=== PATIENT | male | born 1970 | race Caucasian/White ===

== ENCOUNTER 2020-02-23 08:27 | Day surgery (SDC) | payer SELFPAY ==
[2020-02-23] VITALS (11 sets, daily range): BP systolic 119–146; BP diastolic 85–102; PULSE 72–98; RESP 16; TEMP 36.1–37.1; O2SAT 92–98; BMI 26.9
[2020-02-23 08:51] LABS: Prothrombin Time Fingerstick 16.1 SEC (11.9-14.4)
[2020-02-23] MEDS: Lactated Ringers 1,000 ML 100 ML IV ×2 (09:23→14:12)
--- NOTE | 2020-02-23 10:00 | BON_PTH ---
PATIENT: SHERI BALDERRAMA LOC: [facility] [place] U#:[id number] AGE/SX: 50/M ROOM: RE02/23/[address]: Dr. Pilo Flores DPM : 1970 BED: DIS: 02/23/2020 SPEC #: [id number] RECD: 02/23/20 13:34 STATUS: YUSEF REPasquale #: [id number] LAZARO: 02/23/20 10:[address]: Pilo Flores DEPT: SURGICAL PATHOLOGY RECD BY: Sunni Lozada ENTERED: 02/24/20 08:15 SP TYPE: Bone OTHR DR: Louis Hooks, PUBLIC ADDRESS SYSTEM MECHANIC-C Tissues: A - Toe, NOS B - Toe, NOS C - Toe, NOS D - Toe, NOS Procedures: Decalcification bone/plaque Surgery Specimen Level IV HEADER OPERATION: Foot partial first ray amputation, foot second digit amputation PRE-OP DIAGNOSIS: Crushing injury of left foot; displaced fracture of proximal phalanx of left greater toe and lesser toes; 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 Proximal margin left second toe: Pieces of bone with reactive changes, negative for acute osteomyelitis. B. Left second toe, amputation: Focal ulceration and acute inflammation. Underlying bone with acute osteomyelitis. C. Left great toe, amputation: Gangrenous necrosis and associated acute inflammation. Underlying bone with acute osteomyelitis. D. Proximal margin left great toe: Pieces of skin and soft tissue with acute inflammation and granulation tissue reaction. Pieces of bone, consistent with acute and chronic osteomyelitis. SJ:tanvi 02/29/20 MICROSCOPIC DESCRIPTION Slides are reviewed. GROSS DESCRIPTION A - Received in fixative is one container labeled with the patient's name and designated proximal margin second toe, left. The specimen consists of multiple irregular fragments of patterson bone that in aggregate measure 2 x 0.8 x 0.2 cm. The specimen is totally submitted in one cassette after decalcification. B - Received in fixative is one container labeled with the patient's name and designated left second toe. The specimen consists of a portion of bone with adherent skin and soft tissue measuring 2 cm in length and 1.7 cm in diameter. The distal portion appears to contain an ulcerated area measuring 1.8 x 1.5 cm. A longitudinal segment of the entire tissue is submitted in one cassette after decalcification. C - Received in fixative is one container labeled with the patient's name and designated left great toe. The specimen consists of a mummified distal toe containing nail, soft tissue and bone measuring 3 cm in length and 2 cm in diameter. Also present in the specimen container are two irregular and indurated fragments of skin, bone and soft tissue measuring in aggregate 4 x 2.5 x 1 cm. Top Lift And Automatic Window Repairer sections of the largest fragment is submitted in one cassette after decalcification. Top Lift And Automatic Window Repairer sections of the two smaller fragments are submitted in cassette 2 after decalcification. D - Received in fixative is one container labeled with the patient's name and designated proximal margin left great toe. The specimen consists of multiple irregular fragments of light patterson bone and soft tissue that in aggregate measure 3 x 2.5 x 0.2 cm. The specimen is totally submitted in one cassette after decalcification. / AM:tanvi 02/24/20 TC:2 CPT: 09776 x4, 65894 x4
--- NOTE | 2020-02-23 11:06 | DCINST_ITS ---
Discharge Diet: Light diet - advance as tolerated Discharge Activity: May Not Drive, May Not Shower, Use Walker, Use Crutches Weight Bearing Status: No weight bearing Keep extremity elevated above heart level: Left Leg Additional Activity Instructions:: 1. Keep dressing to left foot clean, dry, intact. Do not get dressing wet. Do not remove dressing. If get dressing wet, call office for further instruction. I recommend sponge bathing at this time. 2. Ice around left ankle 30 minutes every hour as needed for pain. 3. Elevate left foot above level of heart as often as possible until further instructed. 4. No walking/standing/placing any weight on left foot. Use crutches/walker/knee scooter for assistance. 5. Begin taking Percocet today, February 23, 2020 as needed for the pain. You can supplement with extra strength Tylenol (acetaminophen). Percocet does contain tylenol (acetaminophen) in it. Do not take more than 3000mg of Tylenol in a 24 hour period. 6. Begin taking doxycycline and ciprofloxacin (antibiotics) tomorrow, February 24, 2020 as prescribed. 7. Begin taking aspirin 81mg twice a day beginning tomorrow, February 24, 2020. 8. Follow-up with Dr. Flores on 02/29/2020 as previously scheduled. Call your doctor if your incision/area has: Sudden Increased Bleeding, Increased Pain/ Swelling Call your doctor if you observe: Fever of 101 or Higher, Coldness, Increased Pain, Shortness of breath, Chest pain, Increased palpitations (irregular heartbeat), Uncontrolled pain Cleanse incision/area with: Keep Dressing Clean & Dry Allergies/Adverse Reactions: Allergies No Known Allergies Allergy (Verified 02/23/20 08:55) Medications to take at Discharge Cilostazol [Pletal] 50 mg PO BIDAC 02/20/20 Ciprofloxacin [Cipro] 500 mg PO BID 02/20/20 Doxycycline 100 mg PO BID 02/20/20 Orders to be completed after discharge: Prothrombin Time w/INR Time Frame: 02/23/20, Facility: [facility], Location: Laboratory Primary Care Physician: Louis Hooks HEAD TRIMMER, HEAD TRIMMER-C [Primary Care Provider] - Test Results: Test results from this visit will be discussed in further detail at your follow- up appointment, if applicable. Please Follow Up With: Pilo Flores DPM When: on 02/29/2020 in [facility] Office Proposed Discharge Date: 02/23/20
[2020-02-23] MEDS: Cefazolin 2 GM in 0.9% Normal Saline 100 ML IV (11:15)
[2020-02-23] MEDS: Bupivacaine Mpf 0.5% 30 ML VIAL (11:40)
--- NOTE | 2020-02-23 13:08 | PCM.OPRPT ---
Problem List (1) Gangrene of toe of left foot Status: Acute (2) Crush injury of foot Status: Chronic Qualifiers: Encounter type: subsequent encounter Laterality: left Qualified Code(s): S97.82XD - Crushing injury of left foot, subsequent encounter Report of Operation Date of Procedure: 02/23/20 Pre-Operative Diagnosis: 1. Gangrene with necrosis of the left foot, first and second toes. 2. Left foot crush injury Post-Operative Diagnosis: Same as preoperative Surgery/Procedure Performed:: 1. Partial amputation, first digit left foot. 2. Complex wound closure, first digit left foot. 3. Partial amputation, second digit left foot. Description of Surgical Findings:: Consistent with diagnosis. Remaining bone appeared hard and healthy with no signs of osteonecrosis and active medullary bleeding noted. Remaining soft tissues appeared intact with capillary fill time of less than 3 seconds and adequate bleeding noted in all soft tissues. No evidence of necrosis remained in the soft tissues. cable installation technician: None Type of Anesthesia:: General/Regional - With a local block given to the left lower extremity consisting of 20 mL of 0.5% bupivacaine plain distributed a left ankle block fashion preoperatively Anesthesiologist: Brayan Quijano Special Medications: 2 g of Ancef given preoperatively Specimen's removed: 1. First toe, left foot. 2. Second toe, left foot. 3. Proximal margin, first toe left foot. 4. Proximal margin, second toe left foot. 5. Wound culture for aerobic, anaerobic, MRSA status post washout, first digit left foot. 6. Wound culture for aerobic, anaerobic, MRSA status post washout, second digit left foot Drains: None Estimated Blood Loss (mL): 5 Description of Procedure: No stasis: Anatomic dissection Estimated blood loss approximately 25 mL Materials: #1. Size 0 Vicryl. 2. Size 2-0 Vicryl. 3. Size 3-0 nylon Injectables: None Complications: Significant difficulty in closure of the hallux wound. Condition: Stable Indications: Patient is a 50-year-old male with past medical history of hypercholesterolemia who suffered an injury to his left foot on December 30, 2019. At that time, patient dropped a steel tube onto his left foot. He was wearing closed toed shoe gear at the time. Patient presented to urgent care, who recommended that he follow-up with podiatry for further evaluation. I initially saw the patient on January 02, 2020 in my office. At that time, fractures were noted of the first, second, third, fourth digits of the left foot. Furthermore, I believed that there may be vascular compromise of the digit. Compartment syndrome was ruled out at that time. After initiating conservative care, had the patient see me once again in my office on January 05. Due to evidence of arterial insufficiency to the digits of the left foot, I had the patient present to the [facility] in [place], [place] to be evaluated by vascular. At that time, vascular started him on a daily regiment of cilostazol and aspirin and recommended the patient begin hyperbaric oxygen therapy. They stated that there was no further intervention that could be done for the vascularity of his toes. Since then, patient has been following up with me on an outpatient basis. He has taken the medications recommended by vascular and has been performing hyperbaric oxygen therapy. I discussed with the patient possible surgical intervention to repair the broken digits, but I did not recommend it at that time for fear of his vascular status. The left hallux and left second digit skin and soft tissues continue to worsen, becoming necrotic. I started the patient on broad-spectrum oral antibiotics and daily dressing changes. Patient had visiting nurse come to his office as well to inspect the wounds in between office visits. Patient urged that he did not want surgical intervention and wanted to exhaust all conservative therapies. Upon seeing the patient on Saturday, February 15, 2020, significant necrosis was present in the left hallux and left second digit. At that time, I discussed with the patient that amputation of the digit is need to be performed in order to avoid limb and life-threatening infections. I discussed with him that further conservative therapy would not work. I discussed the risks and benefits of surgical intervention, including but not limited to delayed or nonhealing wounds, DVT, infection, decreased function of limb, continued pain, damage to surrounding structures, loss of limb, loss of life. I discussed with the patient that I believe the benefits far outweigh the risks. At that time, patient was agreeable to surgical intervention. I had the patient stop his aspirin regimen and schedule surgery for today, February 23, 2020. Report: Before the patient was brought to the operating room, the risks, benefits, possible outcomes, possible complications of the procedure discussed with the patient once again. All the patient questions were answered to his satisfaction and all of his concerns were addressed. No guarantees were made as to the outcome of the of the procedure. Patient understood all aspects of the procedure, and was agreeable to proceed with the surgical intervention. Consent was then signed by the patient. Patient was then brought to the operating room and placed on the operating table in supine position. After timeout, 2 g of Ancef was given preoperatively. Next, general anesthesia was obtained, and anesthesia to control the airway and the IV access. Next, 20 mL of 0.5% bupivacaine plain was distributed in left ankle block fashion. The left foot, ankle, leg were then scrubbed, prepped, draped in the usual sterile manner. Attention was then directed to the distal aspect of the second digit of the left foot. Evidence of necrosis was noted starting at the distal interphalangeal joint extending distally to the distal tip. At this time, the proximal interphalangeal joint was identified and marked. Next, a fishmouth incision was made over the midportion of the middle phalanx of the left second digit. This was performed in full-thickness fashion. The encompass soft tissue was sharply excised and the second digit that was amputated was were passed from the operative site. This was sent for pathology. Visual inspection was then performed of the proximal phalanx of the second digit of the left foot. This appeared hard, healthy, with no signs of osteonecrosis. At this time, a bone cutter was used to resect the portion of this bone. This portion of bone was then sent for pathology labeled proximal margin, second digit of the left foot. Visual inspection was then performed. No osteonecrosis was noted of the bone, and active medullary canal bleeding was noted. No osteonecrosis of the soft tissue was noted as well. Attention was then directed to the first digit of the left foot. At this time, upon visual inspection, the medial aspect of the digit appeared intact with blood capillary fill time of less than 3 seconds. The lateral and plantar aspect of the digit were necrotic. It was then determined that I would attempt to close this wound with a medial hallux skin flap. At this time, #15 blade was used to perform a full-thickness incision surrounding the necrotic tissue in question. The necrotic tissue was then sharply excised and passed from the operative site labeled hallux, left foot. The distal interphalangeal joint was sharply disarticulated and the distal phalanx was then passed from the operative site. Visual inspection was then performed of the proximal phalanx. The proximal phalanx appeared hard, healthy, with no signs of osteonecrosis. At this time, a bone cutter was used to resect a portion of the proximal phalanx. This was then passed from the operative site and sent to pathology labeled clear margins, hallux of left foot. Visual inspection was then performed of the remaining bone. No evidence of osteonecrosis was noted, and there was active medullary canal bleeding. At this time, sharp excisional wound debridement was performed of any necrotic tissue contained within the remaining healthy portions. Adequate bleeding was noted of all skin edges at this time. No evidence of hard nodules were noted at the skin edges. No evidence of necrosis was contained within the bones of the soft tissue. Adequate closure would be obtained with the medial hallux flap. At this time, the left hallux and left second digit were irrigated with 3 L of normal sterile saline. The left foot was then reprepped and draped. Next, wound cultures were taken of both the left hallux and the left second digit status post lavage for aerobic and anaerobic organisms and MRSA. Attention was then directed back to the second digit of the left foot. Subcutaneous tissues were reapproximated and coapted utilizing size 2-0 Vicryl. The skin was reapproximated and coapted utilizing size 3-0 Vicryl in a simple interrupted and horizontal mattress fashion. Attention was then directed to the left hallux. At this time, the subcutaneous tissues were reapproximated and coapted utilizing size 0 Vicryl and 2-0 Vicryl. Significant time was taken in this closure due to the complexity of the wound closure. The skin was reapproximated and coapted utilizing size 3-0 nylon in a simple interrupted and horizontal mattress fashion. Once again, significant time was taken in this closure due to the complexity of the wound. Capillary fill time was assessed of the left hallux and left second digit status post procedure and was deemed intact to the digits. Each surgical site was then dressed with Betadine soaked gauze, and a dry sterile dressing consisting of 4 x 4 gauze, ABD pads, wrapped with Kerlix. The left foot and ankle were then wrapped with an Oral bandage. At this time, capillary fill time was instantaneous to the left third, fourth, fifth digits of the left foot. The patient tolerated the anesthesia and the procedure well and was transported to the PACU with vital signs stable and neurovascular status intact to left lower extremity. After period of postoperative monitoring, patient will be discharged home with written and oral instructions for wound care and follow-up. - Complications Significant difficulty in repair and closure of the left hallux wound. - Admit VTE Documentation VTE Present on Admission: No - Aspirin 81 mg twice a day to start 02/24/20 for DVT prophylaxis VTE Mechan Device Prophylaxis: SCD's VTE Pharm Prophylaxis ordered?: Yes
--- NOTE | 2020-02-23 14:15 | RAD_ITS ---
STUDY: X-RAY - LEFT FOOT CLINICAL: Male, 50 years old. Post partial amputation. TECHNIQUE: 3 view(s) of the foot. COMPARISON: None. FINDINGS: Normal talus, calcaneus, and tarsal bones. Normal visualized subtalar, talonavicular, calcaneocuboid, tarsal and tarsometatarsal articulations. Normal metatarsi. Normal metatarsophalangeal joint of the great toe. Normal tibial and fibular sesamoid bones. Normal proximal phalanx. There is amputation of the great toe at the level of the interphalangeal joint. Normal second through fifth metatarsophalangeal joints. There is amputation of the second digit at the base of the middle phalanx. There is also a mildly displaced fracture through the base of the proximal phalanx. There is a fracture of the takeoff of the third distal phalanx. Otherwise normal interphalangeal joints and phalanges of the lesser toes. The soft tissue structures are unremarkable. RAD/Foot min 3 Views IMPRESSION: 1. Amputation of the distal first and second toes. There is an associated fracture through the second proximal phalanx. 2. Fracture of the distal phalanx of the third toe. Electronically Signed: Iain Vieira DO at 23:21 EST Tel [phone], Service support ,
[2020-02-23] MEDS: Gabapentin 300 MG Capsule 900 MG PO (14:30)
[2020-02-23 15:31] LABS: M R Staph aureus DNA By PCR Negative (Negative); Probe Check PASS; Specimen Processing Control PASS; Staph aureus DNA By PCR NEGATIVE (Negative)
== END 2020-02-23 15:56 | disposition home or self-care (01) ==
LOC: SDC 08:37 → AC 08:37
PROVIDERS: PCP Nurse Practitioner Family; Referring Provider Podiatrist Foot & Ankle Surgery; Visit Provider Podiatrist Foot & Ankle Surgery
PROC: (CPT 28825; principal; 2020-02-23 09:45)
DX: S97.82XA Crushing injury of left foot, initial encounter (principal); I96 Gangrene, not elsewhere classified; W20.8XXA Other cause of strike by thrown, projected or falling object, initial encounter; L97.522 Non-pressure chronic ulcer of other part of left foot with fat layer exposed; S92.512A Displaced fracture of proximal phalanx of left lesser toe(s), initial encounter for closed fracture; S92.412A Displaced fracture of proximal phalanx of left great toe, initial encounter for closed fracture; E78.00 Pure hypercholesterolemia, unspecified; Y93.9 Activity, unspecified; Y92.9 Unspecified place or not applicable; Z79.899 Other long term (current) drug therapy; F17.200 Nicotine dependence, unspecified, uncomplicated
CPT/HCPCS: 01480; 28825 ×2; 36416; 73630; 85610; 87070; 87075; 87077; 87205; 87640; 88305; 88311; J7120; J2405

== ENCOUNTER → 2023-04-28 | Outpatient (CLI) | payer SELFPAY, OTHER ==
--- OUTSIDE RECORDS SUMMARY | 2023-04-28 06:51 | XMS RPT_ITS | CCD ---
Author Name Unknown Address [address] [place] [address] [id number] [place] [address] Organization [facility] Care Team Providers Care Strike Warfare/Missile Systems Officer Name Role Phone BABS ESQUIVEL DPM Primary Care Unavailable BABS ESQUIVEL DPM Attending Unavailable BABS ESQUIVEL DPEben Admitting Unavailable NAHUNWOODY ORTIZ Attending Unavailable NAHUN, WOODY Lemus Admitting Unavailable NAHUNWOODY Primary Care Unavailable ALVIN, BABS DPM Primary Care Unavailable BABS ESQUIVEL DPM Attending Unavailable ESQUIVELBABS DPM Admitting Unavailable ESQUIVELMINABABS DPM Primary Care Unavailable ESQUIVEL, BABS DPM Attending Unavailable ESQUIVEL, BABS DPM Admitting Unavailable Problems Problem Classification Problem Date Documented Da te Episodic/Chronic Immunizations and screening for infectious disease (3 sources) Encounter for screening for other viral diseases; Translations: [Encounter for screening for other viral diseases] Onset: 02-16-2020 Episodic Results Test Name Value Interpretation Reference Range Facil ity Encounters Encounter Date Encounter Type Care Provider Facility Start: 02-16-2020 End: 02-16-2020 Patient encounter procedure WOODY GARNICA [facility] Start: 02-16-2020 Encounter for preprocedural respiratory examination BABS [facility] Start: 02-16-2020 End: 02-16-2020 Patient encounter procedure BABS DPM [facility] Start: 01-03-2020 End: 01-03-2020 Patient encounter procedure BABS DPM [facility] Encounter for preprocedural respiratory examination BABS [facility] Payers Date Payer Category Payer Unknown [id number] 1970 Unknown [id number] 1970 Unknown [id number] Unknown Summary Purpose Family History No Family History Records FoundNo Family History Records FoundNo Family History Records Found Advance Directives No Advanced Directives Records FoundNo Advanced Directives Records FoundNo Advanced Directives Records Found Additional Source Comments (unrecognized sect ion and content) No Status Records FoundNo Status Records FoundNo Status Records Found INFORMATION SOURCE (unrecogn ized section and content) DATE CREATED AUTHOR AUTHOR'S ORGANIZ ATION 02/20/2020 [facility] DATE CREATED AUTHOR AUTHOR'S ORGANIZ ATION 03/07/2020 [facility] FOR RECORDS PERTAINING TO PATIENTS WHO ARE OR HAVE BEEN ENROLLED IN A CHEMICAL DEPENDENCY/SUBSTANCEABUSE PROGRAM, SOME INFORMATION MAY BE OMITTED. This clinical summary was aggregated from multiple sources. Caution should be exercised in using it in the provision of clinical care. This summary normalizes information from multiple sources, and as a consequence, information in this document may materially change the coding, format and clinical context of patient data. In addition, data may be omitted in some cases. CLINICAL DECISIONS SHOULD BE BASED ON THE PRIMARY CLINICAL RECORDS. [employer] provides no warranty or guarantee of the accuracy or completeness of information in this document.
--- NOTE | 2023-04-28 06:54 | CT_ITS ---
STUDY: CT CHEST WITHOUT CONTRAST REASON FOR EXAM: Male, 53 years old. CHEST PAIN RADIATION DOSAGE (If Supplied By Facility): CTDIvol = ( 12.19 ) mGy, DLP = ( 243.79 ) mGycm TECHNIQUE: Transaxial imaging was performed without the administration of intravenous contrast material. Cardiac over read examination. Individualized dose optimization techniques were used for this CT. COMPARISON: No relevant priors. FINDINGS: CHEST The lungs are normal. There is no demonstrated pleural abnormality. Normal heart and pericardium. No coronary artery calcification is seen. Normal mediastinum. Normal hilar regions. Normal unenhanced pulmonary arteries. Normal aorta arch and descending thoracic aorta. Normal osseous structures. 9.1 mm cyst in the anterior superior aspect of the right lobe of the liver. CT/Limited Chest CT Cardiac Only IMPRESSION: No coronary artery calcifications visualized. Electronically Signed: Quoc Snell MD at 9:35 EST ,
--- NOTE | 2023-04-28 07:44 | CA.SCORE ---
Calcium Scoring Date of Study:: 04/28/23 Indications Indications: Chest pain Coronary Calcium Scoring: High-resolution Computed Tomographic imaging of the chest was performed on [04/28/2023], with particular attention paid to the coronary arteries. Images from the examination were analyzed for the presence and extent of coronary artery calcification , using coronary calcium quantification software. The patient tolerated the procedure well and there were no complications. The results of the coronary calcification analysis are provided below. Findings Coronary Artery Left Main (LM): 0 Left Anterior Descending (LAD): 0 Left Circumflex (LCX): 0 Right Coronary Artery (RCA): 0 Total Agatston Score: 0 Percentile Rankin Calcium Scoring Interpretation: Different methods to categorize the overall amount of coronary plaque. Overall amount CAC SIS Visual of coronary plaque P1 Mild -100 <2 1-2 vessels with mild amount of plaque P2 Moderate 101-300 3-4 1-2 vessels with moderate amount, 3 vessels with mild amount of plaque P3 Severe 301-999 5-7 3 vessels with moderate amount, 1 vessel with severe amount of plaque P4 Extensive >1000 >8 2-3 vessels with severe amount of plaque Conclusion: No atherosclerotic plaquing noted.
--- NOTE | 2023-04-28 18:18 | STRESSREP ---
Stress Test Report Exercise myocardial perfusion stress test. 53-year-old male with a history of chest pain Stress protocol: Resting EKG demonstrates normal sinus rhythm with a rate of 64 bpm resting blood pressure is 124/80 mmHg. The patient exercised according to the regular Chris protocol for a total duration of 9 minutes attaining a maximum heart rate of 155 bpm which was 92% of maximum predicted heart rate; the maximum workload was 10.1 metabolic equivalents. At rest there were no ST or T wave changes noted to suggest ischemia and at peak exercise upsloping ST changes only were noted which did not meet the criteria for ischemia. No clinical angina was noted the test was terminated due to the target heart rate being achieved/fatigue. The peak blood pressure was 168/82 mmHg. Rate-pressure product was 25,400. Myocardial perfusion protocol. 14.1 mCi of technetium 99m sestamibi was injected at rest. The patient exercised according to regular Chris protocol for total duration of 9 minutes and at peak exercise 43.9 mCi of technetium 99m sestamibi was injected stress images were obtained stress and rest images were reconstructed in comparing the short axis vertical long and horizontal long axis. Gated images were also obtained. Perfusion SPECT analysis: Review of the stress images demonstrate normal uptake of tracer noted in all areas of the myocardium. The resting images similarly demonstrate normal uptake of tracer noted in all areas of the myocardium. No areas of reversibility are noted to suggest ischemia no previous infarct was noted. Gated SPECT analysis: The gated ejection fraction is 64%. Conclusion: Normal exercise myocardial perfusion stress test at a high workload Preserved ejection fraction.
== END | disposition home or self-care (01) ==
PROVIDERS: PCP Family Medicine; Referring Provider Internal Medicine Cardiovascular Disease; Visit Provider Internal Medicine Cardiovascular Disease
DX: Z91.89 Other specified personal risk factors, not elsewhere classified (principal); E78.5 Hyperlipidemia, unspecified; R07.9 Chest pain, unspecified; I70.90 Unspecified atherosclerosis
CPT/HCPCS: 75571; 76380; 78452; 93017; A9500; A4216